=== PATIENT | female | born 1985 | race Hispanic/Latino ===

== ENCOUNTER 2023-11-20 05:59 | Day surgery (SDC) | payer OTHER ==
[~2023-11-20] VITALS: Ht 170.2 cm; Wt 88.9 kg
[2023-11-20] VITALS (10 sets, daily range): BP systolic 90–111; BP diastolic 48–70; PULSE 60–66; RESP 15–18; TEMP 97.5–98.1
[2023-11-20] MEDS: 0.9%NACL 1000ML 1,000 ML IV ONE (06:34)
[2023-11-20] MEDS ORDERED: proPOFol 10 MG/ML 20ML VIAL IV ONE (07:46)
[2023-11-20] MEDS ORDERED: LIDOCAINE PF 100MG/5ML (2%) SYRINGE 5ML ONE (07:46)
== END 2023-11-20 09:50 | disposition home or self-care (01) ==
LOC: ENDO 05:59 → DAH 05:59 → ENDO 09:50
PROVIDERS: ATTEND Internal Medicine Gastroenterology
DX: K59.00 Constipation, unspecified (principal); D12.8 Benign neoplasm of rectum; K29.50 Unspecified chronic gastritis without bleeding; K64.4 Residual hemorrhoidal skin tags; L29.0 Pruritus ani; K57.30 Diverticulosis of large intestine without perforation or abscess without bleeding; Z15.09 Genetic susceptibility to other malignant neoplasm; R93.3 Abnormal findings on diagnostic imaging of other parts of digestive tract; B96.81 Helicobacter pylori [H. pylori] as the cause of diseases classified elsewhere; Z79.899 Other long term (current) drug therapy
CPT/HCPCS: 81025; 43239; 45380; J7030 ×2; J2001; J2704; A4620; A4215; A4223; A7002; A4222; A4221; A4663; A4606; J3490

== ENCOUNTER 2025-01-04 06:51 | Day surgery (SDC) | payer OTHER ==
[~2025-01-04] VITALS: Ht 160 cm; Wt 83.0 kg
[2025-01-04] VITALS (13 sets, daily range): BP systolic 93–115; BP diastolic 46–76; PULSE 47–58; RESP 13–18; TEMP 96.8–97.5
[2025-01-04] MEDS ORDERED: 0.9%NACL 1000ML 1,000 ML IV ONE (07:03)
[2025-01-04] MEDS ORDERED: CEFD300C3 PO (07:22)
[2025-01-04] MEDS ORDERED: PANT40TA PO (07:22)
== END 2025-01-04 10:18 | disposition home or self-care (01) ==
LOC: DAH 06:51 → ENDO 06:51
PROVIDERS: ATTEND Internal Medicine Gastroenterology
DX: K57.32 Diverticulitis of large intestine without perforation or abscess without bleeding (principal); K29.50 Unspecified chronic gastritis without bleeding; K57.30 Diverticulosis of large intestine without perforation or abscess without bleeding; B96.81 Helicobacter pylori [H. pylori] as the cause of diseases classified elsewhere; K29.70 Gastritis, unspecified, without bleeding; R93.3 Abnormal findings on diagnostic imaging of other parts of digestive tract; Z86.0100 Personal history of colon polyps, unspecified; Z98.890 Other specified postprocedural states; Z79.899 Other long term (current) drug therapy
CPT/HCPCS: 43239; 45378; 81025; J7030; J2704 ×2; A4620; A4215 ×2; A4223; A4222; A4221; A4663; A4606; J3490